=== PATIENT | male | born 1970 | race African-American/Black ===

== ENCOUNTER 2022-08-19 05:24 | Emergency (ER) | payer OTHER ==
[~2022-08-19] VITALS: Ht 182.9 cm; Wt 117.0 kg
[2022-08-19 05:34] VITALS: BP 112/68
== END 2022-08-19 06:36 | disposition home or self-care (01) ==
LOC: ER 05:24
DX: S40.022A Contusion of left upper arm, initial encounter (principal); J45.909 Unspecified asthma, uncomplicated; X50.9XXA Other and unspecified overexertion or strenuous movements or postures, initial encounter; Y93.89 Activity, other specified; Y92.89 Other specified places as the place of occurrence of the external cause; Y99.8 Other external cause status
CPT/HCPCS: 76881; 99284

== ENCOUNTER → 2022-08-25 | Outpatient (CLI) | payer OTHER | END | disposition home or self-care (01) | LOC: MRI 07:51 | PROVIDERS: ATTEND Family Medicine Adult Medicine | DX: S46.912A Strain of unspecified muscle, fascia and tendon at shoulder and upper arm level, left arm, initial encounter (principal); S41.112A Laceration without foreign body of left upper arm, initial encounter; S49.92XA Unspecified injury of left shoulder and upper arm, initial encounter; R60.0 Localized edema; X58.XXXA Exposure to other specified factors, initial encounter; Y93.89 Activity, other specified; Y92.89 Other specified places as the place of occurrence of the external cause; Y99.8 Other external cause status | CPT/HCPCS: 73220 ==